=== PATIENT | female | born 1980 | race American Indian/Alaskan Native ===

== ENCOUNTER 2018-02-02 02:16 | Inpatient (IN) | payer OTHER ==
[2018-02-02] MEDS ORDERED: ePHEDrine SULFATE IV PRN (02:59)
[2018-02-02] MEDS ORDERED: POLYCILLIN/NS 2 GM/100 ML 2 GM/100 ML BAG IV ONE (02:59)
[2018-02-02] MEDS ORDERED: BRETHINE IVP PRN (02:59)
[2018-02-02] MEDS ORDERED: BRETHINE SUB-Q PRN (02:59)
[2018-02-02] MEDS ORDERED: XYLOCAINE 2% INFILTRATI ONE (02:59)
[2018-02-02] MEDS ORDERED: MINERAL OIL PO PRN (02:59)
[2018-02-02] MEDS ORDERED: SUBLIMAZE IV PRN (02:59)
[2018-02-02] MEDS ORDERED: LACTATED RINGERS 1,000 ML IV SCH (03:00)
[2018-02-02] MEDS ORDERED: PITOCin/NS 20 UNIT/1000ML DRIP 20 UNITS/1,000 ML BAG IV SCH (03:00)
[2018-02-02 03:41] LABS: Hematocrit 34.7 % (30.3-42.9); Hemoglobin 11.9 gm/dl (10.1-14.3); Mean Corpuscular HGB Conc 34 % (30-34); Mean Corpuscular Hemoglobin 30 pg (28-32); Mean Corpuscular Volume 89 fl (79-97); Platelet Count 201 K/mm3 (140-440); Red Blood Count 3.91 M/mm3 (3.65-5.03)
--- NOTE | 2018-02-02 05:10 | History and Physical Report ---
History of Present Illness Date of examination: 02/02/18 Date of admission: 02/02/18 03:35 Chief complaint: Leaking fluid History of present illness: 37yo G 1 P 0 @ 38 weeks 5 days here with c/o leaking clear fluid since 01:40. SROM confirmed by +Nitrazine test in Triage. She reports +FMs but denies UCs or VB. She is a [employer] patient and denies any complications this . She claims her last visit was 01/30/18. No records available. Her GBS status is unknown. Past History Past Medical History: no pertinent history Past Surgical History: no surgical history Family/Genetic History: none Social history: single, lives with family, full code - Obstetrical History Expected Date of Delivery: 02/11/18 Actual Gestation: 38 Week(s) 5 Day(s) : 1 Para: 0 Hx # Term Pregnancies: 0 Number of Pregnancies: 0 Spontaneous Abortions: 0 Induced : 0 Number of Living Children: 0 Medications and Allergies Allergies Allergy/AdvReac Type Severity Reaction Status Date / Time No Known Allergies Allergy Unverified 02/02/18 02:42 Home Medications Medication Instructions Recorded Confirmed Last Taken Type No Known Home Medications [No 02/02/18 02/02/18 Unknown History Reported Home Medications] Active Meds: Active Medications Ephedrine Sulfate (Ephedrine Sulfate) 10 mg IV Q2M PRN PRN Reason: Hypotension Fentanyl (Sublimaze) 100 mcg IV Q2H PRN PRN Reason: Labor Pain Lactated Ringer's (Lactated Ringers) 1,000 mls @ 125 mls/hr IV DIRECT HOLLY Last Admin: 02/02/18 03:15 Dose: 125 mls/hr Oxytocin/Sodium Chloride (Pitocin/Ns 20 Unit/1000ml Drip) 20 units in 1,000 mls @ 125 mls/hr IV DIRECT HOLLY Ampicillin Sodium (Ampicillin/Ns 1 Gm/50 Ml) 1 gm in 50 mls @ 100 mls/hr IV Q4HR HOLLY; Protocol Mineral Oil (Mineral Oil) 30 ml PO QHS PRN PRN Reason: Constipation Terbutaline Sulfate (Brethine) 0.25 mg SUB-Q ONCE PRN PRN Reason: Hyperstimulation/Hypertonicity Terbutaline Sulfate (Brethine) 0.25 mg IVP ONCE PRN PRN Reason: Hyperstimulation/Hypertonicity Review of Systems All systems: negative - Vital Signs Vital signs: Vital Signs Pulse BP 73 128/75 02/02/18 02:48 02/02/18 02:48 Temp Pulse Resp BP Pulse Ox 98.3 F 72 18 141/86 99 02/02/18 02:55 02/02/18 05:07 02/02/18 02:55 02/02/18 05:07 02/02/18 04:31 - Physical Exam Abdomen: Positive: normal appearance, soft Genitourinary (Female): Positive: normal external genitalia, normal perenium Vulva: both: normal Vagina: Positive: normal moisture Uterus: Positive: normal contour Extremities: Positive: normal - Obstetrical FHR: category 2 FHR comments: baseline 120, moderate variability, +ccels. variable decels Uterine Contraction Monitor Mode: External Cervical Dilatation: 3.5 (per RN) Cervical Effacement Percentage: 80 (per RN) station: -2 (per RN) Uterine Contraction Frequency (min): 2-4 Uterine Contraction Pattern: Regular Results Result Diagrams: 02/02/18 03:15 Abnormal lab results 02/02/18 Range/Units 03:15 RDW 13.0 L (13.2-15.2) % All other labs normal. Assessment and Plan - Patient Problems (1) 38 weeks gestation of Current Visit: Yes Status: Acute (2) Spontaneous rupture of amniotic membranes Current Visit: Yes Status: Acute Plan to address problem: Admit to L&D with routine labor orders Start Ampicillin 2gm IV loading dose then 1 gm q4h until delivery for GBS prophylaxis Anticipate vaginal delivery (3) Advanced maternal age, 1st Current Visit: Yes Status: Acute Qualifiers: Trimester: third trimester Qualified Code(s): O09.513 - Supervision of elderly primigravida, third trimester
--- NOTE | 2018-02-02 05:38 | Procedure Note ---
OB Delivery Note - Delivery Date of Delivery: 02/02/18 (04:25) Surgeon: ARCHIE ARIAS (CNM) Estimated blood loss: 200cc - Vaginal Delivery presentation: vertex Delivery position: OA Intrapartum events: precipitous labor- <3hr, mult.variable deceleratio Delivery induction: none Delivery monitor: external FHT, external uterine Route of delivery: (04:25) Delivery placenta: spontaneous (04:35) Delivery cord: 3 umbilical vessels, other (body cord x1) Episiotomy: none Delivery laceration: 1st degree (vaginal) Delivery repair: vicryl (3-0 CT-1) Anesthesia: local Delivery comments: of a less vigorous 4 lbs 9 oz male on 02/02/18 @ 04:25. Body cord noted x1 and reduced after delivery of baby. Umbilical cord immediately double- clamped and baby handed over to awaiting NICU team. Cord blood collected. Spont delivery of placenta, [place]-side presenting @ 04:35. Small lochia noted. Fundal massage and IV Pitocin bolus initiated. Fundus F/ML/U-2. 1st degree vag lac noted and repaired under local anesthesia. Patient tolerated the procedure well with minimal discomfort. Mom and baby [id number] in stable condition. - Infant A at 1 minute: 8 at 5 minutes: 9 Infant Gender: Male (4 lbs 9 oz (2065gm); 18 in)
[2018-02-02] MEDS ORDERED: DULCOLAX PR PRN (05:41)
[2018-02-02] MEDS ORDERED: PHENERGAN PO PRN (05:41)
[2018-02-02] MEDS ORDERED: PHENERGAN PR PRN (05:41)
[2018-02-02] MEDS ORDERED: NORCO 5/325 PO PRN (05:41)
[2018-02-02] MEDS ORDERED: LANSINOH TP PRN (05:41)
[2018-02-02] MEDS ORDERED: TYLENOL PO PRN (05:41)
[2018-02-02] MEDS ORDERED: BENADRYL PO PRN (05:41)
[2018-02-02] MEDS ORDERED: MILK OF MAGNESIA PO PRN (05:41)
[2018-02-02] MEDS ORDERED: ZOFRAN IV PRN (05:41)
[2018-02-02] MEDS ORDERED: SODIUM CHLORIDE FLUSH SYRINGE 10 ML IV NR (06:00)
[2018-02-02 06:30] LABS: Alanine Aminotransferase < 5 units/L (7-56)
[2018-02-02 06:42] LABS: Uric Acid 3.9 mg/dL (3.5-7.6)
[2018-02-02] MEDS ORDERED: AMPICILLIN/NS 1 GM/50 ML 1 GM/50 ML BAG IV SCH (07:00)
[2018-02-02] MEDS: TUCKS PAD TP PRN (11:16)
[2018-02-02] MEDS: PRENATAL VITAMIN PO SCH (11:16)
[2018-02-02] MEDS: DERMOPLAST TP PRN (11:16)
[2018-02-02] MEDS: MOTRIN PO SCH ×2 (12:31→18:42)
[2018-02-02 18:34] LABS: Hematocrit 28.7 % (30.3-42.9); Hemoglobin 9.5 gm/dl (10.1-14.3)
[2018-02-03] MEDS: PRENATAL VITAMIN PO SCH (09:28)
--- NOTE | 2018-02-03 10:19 | Progress Note ---
Assessment and Plan A: PP Day #1 Asymptomatic Anemia P: Follow Routine Orders D/C Home today RTO in 6 weeks Subjective - Subjective Date of service: 02/03/18 Patient reports: appetite normal, voiding normally, pain well controlled, flatus , ambulating normally : doing well Objective - Vital Signs Latest vital signs: Vital Signs Temp Pulse Resp BP BP Pulse Ox 02/03/18 08:50 98.4 F 65 18 119/80 02/03/18 00:00 98.7 F 78 18 102/79 02/02/18 19:30 98.6 F 74 18 113/72 02/02/18 15:49 98.2 F 76 20 100/68 99 02/02/18 11:51 98.5 F 68 20 112/67 98 Intake and Output 02/02/18 02/03/18 02/03/18 22:59 06:59 14:59 Intake Total 300 120 Balance 300 120 Intake: Oral 120 Intake, Free Water 300 Other: Total, Intake Amount 120 # Voids Void 1 - Exam Breasts: Present: normal Cardiovascular: Present: Regular rate Lungs: Present: Clear to auscultation, Normal air movement Abdomen: Present: normal appearance, soft, normal bowel sounds Uterus: Present: normal, firm, fundal height below umbilicus Extremities: Present: normal - Labs Labs: Abnormal lab results 02/02/18 Range/Units 18:15 Hgb 9.5 L (10.1-14.3) gm/dl Hct 28.7 L D (30.3-42.9) %
--- NOTE | 2018-02-03 10:20 | Discharge Summary ---
Providers - Providers Date of Admission: 02/02/18 03:35 Date of discharge: 02/03/18 Attending physician: AKUA WIGGINS MD Primary care physician: AKUA WIGGINS MD Hospitalization Reason for admission: rupture of membranes Delivery: Laceration: 1st degree Other procedures: none complications: none Discharge diagnosis: IUP at term delivered baby: male Condition at discharge: Good Disposition: DC-01 TO HOME OR SELFCARE Plan - Provider Discharge Summary Activity: routine, no sex for 6 weeks, no heavy lifting 4 weeks, no strenuous exercise Additional instructions: [] Smoking cessation referral if applicable(refer to patient education folder for contact #) [] Refer to [facility] Booklet Call your doctor immediately for: * Fever > 100.5 * Heavy vaginal bleeding ( >1 pad per hour) * Severe persistent headache * Shortness of breath * Reddened, hot, painful area to leg or breast * Drainage or odor from incision. * Keep incision clean and dry at all times and follow doctor's instructions regarding bathing/showering - Follow up plan Follow up: AKUA WIGGINS MD [Primary Care Provider] - 6 Weeks
[2018-02-03] MEDS: TUCKS PAD TP PRN (17:24)
[2018-02-03] MEDS: DERMOPLAST TP PRN (17:24)
[2018-02-04 08:32] VITALS: BP 108/70
[2018-02-04] MEDS: PRENATAL VITAMIN PO SCH (12:00)
[2018-02-04] MEDS: MOTRIN PO SCH (12:00)
== END 2018-02-04 14:45 | disposition home or self-care (01) | DRG 775 ==
LOC: TRG 02:16 → LD 03:35 → TRG 03:35 → OB 07:59
PROVIDERS: ADMIT Obstetrics & Gynecology; ATTEND Obstetrics & Gynecology
PROC: 10E0XZZ Delivery of Products of Conception, External Approach (ICD-10-PCS; principal; 2018-02-02)
PROC: 0HQ9XZZ Repair Perineum Skin, External Approach (ICD-10-PCS; 2018-02-02)
DX: O62.3 Precipitate labor (principal); O70.0 First degree perineal laceration during delivery; O99.03 Anemia complicating the puerperium; D64.9 Anemia, unspecified; O76 Abnormality in fetal heart rate and rhythm complicating labor and delivery; O69.89X0 Labor and delivery complicated by other cord complications, not applicable or unspecified; Z3A.38 38 weeks gestation of pregnancy; Z37.0 Single live birth
CPT/HCPCS: 36415; 82565; 83615; 84450; 84460; 84550; 85014; 85018; 85027; 86592; 86850; 86900; 86901; 99211; G0463; J2590; J7120